=== PATIENT | male | born 1980 | race Caucasian/White ===

== ENCOUNTER 2021-08-31 15:40 | Emergency (ER) | payer BC ==
[2021-08-31 16:49] LABS: BLOOD UREA NITROGEN,BUN 21 mg/dL (7.0-18.0); CARBON DIOXIDE,CO2 27.8 mmol/L (21.0-32.0); CHLORIDE,CL 101 mmol/L (98-107); GLUCOSE RANDOM 172 mg/dL (74-106); LIPASE 121 U/L (73-393); POTASSIUM,K 3.7 mmol/L (3.5-5.1); SODIUM,NA 137 mmol/L (136-148)
[2021-08-31 17:01] LABS: ESTIMATED GFR > 60.0 ml/min
== END 2021-08-31 19:55 | disposition home or self-care (01) ==
LOC: MW.ED 15:40
DX: R07.89 Other chest pain (principal); E11.9 Type 2 diabetes mellitus without complications; E78.00 Pure hypercholesterolemia, unspecified; Z79.899 Other long term (current) drug therapy; Z86.16 Personal history of COVID-19
CPT/HCPCS: 36415; 71046; 71046-26; 80053; 81003; 83690; 84484; 85025; 85379; 99285-25